=== PATIENT | female | born 1980 | race Caucasian/White ===

== ENCOUNTER 2022-08-04 20:17 | Observation (INO) ==
[2022-08-04 22:21] LABS: Influenza A PCR Negative (Negative); Influenza B PCR Negative (Negative); Resp. Syncytial Virus PCR Negative (Negative); SARS-CoV-2 by PCR (In House) Negative (Negative)
[2022-08-05] MEDS ORDERED: 0.9 % Sodium Chloride 1,000 ML IV ONE (02:04)
[2022-08-05] MEDS ORDERED: Ondansetron 4 MG/2 ML VIAL IVP ONE (02:04)
[2022-08-05 02:26] LABS: Basophils # 0.1 K/mcL (0.0-0.2); Basophils % 0.4 %; Eosinophils # 0.1 K/mcL (0.0-0.6); Eosinophils % 0.3 %; Hematocrit 44.9 % (35.3-44.9); Hemoglobin 15.3 g/dL (11.5-15.4); Immature Granulocytes % 0.4 % (0-4); Lymphocytes # 4.2 K/mcL (0.6-4.6); Lymphocytes % 23.6 %; Mean Corpuscular HGB Conc 34.1 g/dL (31.6-35.5); Mean Corpuscular Hemoglobin 30.7 pg (28.0-33.3); Mean Platelet Volume 10.1 fL (9.4-12.4); Monocytes # 0.9 K/mcL (0.0-1.3); Monocytes % 4.8 %; Neutrophils # 12.5 K/mcL (1.6-8.9); Platelet Count 274 K/mcL (140-400); Red Blood Count 4.99 M/mcL (3.82-4.97); Red Cell Distribution Width 13.2 % (11.5-14.5); Segmented Neutrophils % 70.5 %; White Blood Count 17.8 K/mcL (4.3-11.1)
[2022-08-05 02:34] LABS: Bilirubin,Urine Negative (Negative); Blood,Urine Negative (Negative); Clarity,Urine Turbid (Clear); Color,Urine Light-Orange (Yellow); Glucose,Urine (UA) 300 mg/dL (Normal); Ketones,Urine 20 mg/dL (Negative); Leukocyte Esterase,Urine Large (Negative); Mucus,Urine Few per lpf (None-Few); Nitrite,Urine Negative (Negative); PH,Urine 7.5 pH Units (5.0-8.0); Protein,Urine 30 mg/dL (Neg-Trace); Squamous Epithelial Cell,Urine Many per hpf (None-Few); Urobilinogen,Urine Normal (Normal)
[2022-08-05 02:45] LABS: Alanine Aminotransferase 23 Units/L (7-52); Albumin 4.6 g/dL (3.5-5.7); Albumin/Globulin Ratio 1.5 (1.1-2.2); Alkaline Phosphatase 105 Units/L (34-104); Aspartate Amino Transferase 32 Units/L (13-39); BUN/Creatinine Ratio 9 (6-26); Bilirubin,Direct 0.2 mg/dL (0.0-0.2); Bilirubin,Indirect 1.1 mg/dL (0.0-1.0); Bilirubin,Total 1.3 mg/dL (0.3-1.0); Blood Urea Nitrogen 6 mg/dL (6-20); Calcium 9.8 mg/dL (8.6-10.3); Carbon Dioxide 29 mEq/L (23-29); Chloride 96 mEq/L (98-107); Globulin 3.1 g/dL (2.4-3.5); Glucose 189 mg/dL (70-105); Lipase 20 Units/L (11-82); Osmolality,Calculated 289 (280-300); Sodium 138 mEq/L (136-145); Total Protein 7.7 g/dL (6.4-8.9); Troponin I < 0.03 ng/mL (< 0.04)
[2022-08-05] MEDS ORDERED: Haloperidol Lactate 5 MG/ML VIAL IM ONE (02:46)
[2022-08-05] MEDS ORDERED: Iopamidol - 370 500 ML MLS IVP ONE (02:47)
[2022-08-05 04:06] LABS: Magnesium 1.5 mg/dL (1.6-2.6)
[2022-08-05] MEDS ORDERED: *HR* FentaNYL (PF) 100 MCG/2 ML VIAL IVP ONE (04:19)
[2022-08-05] MEDS ORDERED: levoFLOXacin 750 MG TABLET PO ONE (04:19)
[2022-08-05] MEDS ORDERED: Magnesium Oxide 400 MG TABLET PO ONE (04:20)
[2022-08-05] MEDS ORDERED: cefTRIAXone 1,000 MG in 0.9 % Sodium Chloride 10 ML IVP ONE (04:40)
[2022-08-05] MEDS ORDERED: Magnesium Sulfate 1 GM/102 ML PIGGYBACK IVPB ONE (04:40)
[2022-08-05] MEDS ORDERED: Naloxone 0.4 MG/ML INJ IVP PRN (06:09)
[2022-08-05] MEDS ORDERED: *HR* Dextrose 50 % in Water (Syg) 50 ML SYRINGE IVP PRN (06:11)
[2022-08-05] MEDS ORDERED: D5% in Water 1,000 ML IVC PRN (06:11)
[2022-08-05] MEDS ORDERED: Dextrose Gel 15 GM/37.5 ML TUBE PO PRN ×2 (06:11)
[2022-08-05 07:46] LABS: Amphetamine Screen,Urine Negative ng/mL (Cutoff=1000); Barbiturate Screen,Urine Negative ng/mL (Cutoff=200); Benzodiazepines Screen,Urine Negative ng/mL (Cutoff=300); Cannabinoid Screen,Urine Positive ng/mL (Cutoff = 50); Cocaine Screen,Urine Negative ng/mL (Cutoff= 300)
[2022-08-05 07:47] LABS: Opiate Screen,Urine Positive ng/mL (Cutoff=300); Phencyclidine Screen,Urine Negative ng/mL (Cutoff=25)
[2022-08-05] MEDS: Metoclopramide 10 MG/2 ML VIAL IVP PRN ×2 (10:18→20:13)
[2022-08-05] MEDS: 0.9 % Sodium Chloride 1,000 ML IVC SCH ×2 (10:19→17:11)
[2022-08-05 11:22] LABS: Estimated Average Glucose 200 mg/dl; Hemoglobin A1C 8.6 %
[2022-08-05 11:56] LABS: BUN/Creatinine Ratio 8 (6-26); Blood Urea Nitrogen 5 mg/dL (6-20); Calcium 9.1 mg/dL (8.6-10.3); Carbon Dioxide 24 mEq/L (23-29); Chloride 104 mEq/L (98-107); Glucose 206 mg/dL (70-105); Magnesium 1.9 mg/dL (1.6-2.6); Osmolality,Calculated 289 (280-300); Potassium 3.3 mEq/L (3.5-5.1); Sodium 138 mEq/L (136-145)
[2022-08-05] MEDS: Insulin LISPRO 300 UNITS/3 ML VIAL SUBQ SCH ×3 (13:06→23:44)
[2022-08-05] MEDS ORDERED: hydrALAZINE 25 MG TABLET PO ONE (13:12)
[2022-08-05] MEDS ORDERED: *HR* LORazepam 0.5 MG TABLET PO PRN (14:12)
[2022-08-05] MEDS: *HR* Promethazine 25 MG/ML VIAL IM PRN (14:54)
[2022-08-05] MEDS: Nicotine 21 MG PATCH.TD24 TD SCH (17:07)
[2022-08-05] MEDS: Gabapentin 300 MG CAPSULE PO SCH (20:13)
[2022-08-05] MEDS: Fluticasone Propionate Nasal 50 MCG/SPRAY BOTTLE NS SCH (22:28)
[2022-08-06 03:59] LABS: Hematocrit 37.9 % (35.3-44.9); Mean Corpuscular Hemoglobin 30.4 pg (28.0-33.3); Mean Corpuscular Volume 92.2 fL (83.0-100.0); Mean Platelet Volume 10.3 fL (9.4-12.4); Platelet Count 169 K/mcL (140-400); Red Blood Count 4.11 M/mcL (3.82-4.97); Red Cell Distribution Width 13.3 % (11.5-14.5)
[2022-08-06] MEDS: Metoclopramide 10 MG/2 ML VIAL IVP PRN (04:14)
[2022-08-06 04:23] LABS: Hemoglobin 12.5 g/dL (11.5-15.4); White Blood Count 8.8 K/mcL (4.3-11.1)
[2022-08-06] MEDS ORDERED: *HR* HYDROcodone/Acet 5/325 mg TABLET PO ONE ×2 (04:38→11:10)
[2022-08-06 04:46] LABS: BUN/Creatinine Ratio 10 (6-26); Blood Urea Nitrogen 6 mg/dL (6-20); Calcium 8.6 mg/dL (8.6-10.3); Carbon Dioxide 26 mEq/L (23-29); Chloride 107 mEq/L (98-107); Glucose 157 mg/dL (70-105); Magnesium 1.8 mg/dL (1.6-2.6); Osmolality,Calculated 293 (280-300); Potassium 3.4 mEq/L (3.5-5.1); Sodium 141 mEq/L (136-145)
[2022-08-06] MEDS: 0.9 % Sodium Chloride 1,000 ML IVC SCH ×2 (04:57→12:15)
[2022-08-06] MEDS: Insulin LISPRO 300 UNITS/3 ML VIAL SUBQ SCH ×2 (05:08→12:15)
[2022-08-06] MEDS ORDERED: cefTRIAXone 1,000 MG in 0.9 % Sodium Chloride Mini Bag 100 ML IVPB SCH (06:00)
[2022-08-06 06:30] VITALS: O2SAT 95
[2022-08-06] MEDS: *HR* Promethazine 25 MG/ML VIAL IM PRN (08:43)
[2022-08-06] MEDS: Gabapentin 300 MG CAPSULE PO SCH (08:43)
[2022-08-06] MEDS: Nicotine 21 MG PATCH.TD24 TD SCH (08:44)
[2022-08-06] MEDS: Fluticasone Propionate Nasal 50 MCG/SPRAY BOTTLE NS SCH (08:44)
[2022-08-06] MEDS ORDERED: Acetaminophen 325 MG TABLET PO PRN (09:21)
[2022-08-06 10:52] VITALS: BP 135/86; PULSE 67; TEMP 98
== END 2022-08-06 14:55 | disposition home or self-care (01) ==
LOC: 2ANU 20:17 → EMEROOARM 20:17 → 2ANU 08-05 13:42
PROVIDERS: ADMIT Student in an Organized Health Care Education/Training Program; ATTEND Student in an Organized Health Care Education/Training Program